=== PATIENT | male | born 1960 | race Caucasian/White ===

== ENCOUNTER 2024-02-26 06:23 | Day surgery (SDC) | payer OTHER, SELFPAY | END 2024-02-26 13:49 | disposition home or self-care (01) | LOC: GI 06:23 | PROVIDERS: ATTENDING PHYSICIAN Internal Medicine | DX: Z12.11 Encounter for screening for malignant neoplasm of colon (principal); D12.4 Benign neoplasm of descending colon; K57.30 Diverticulosis of large intestine without perforation or abscess without bleeding | CPT/HCPCS: 45385; 45380; 88305 ==